=== PATIENT | female | born 1955 | race Native Hawaiian/Other Pacific Islander ===

== ENCOUNTER 2017-05-25 11:37 | Outpatient (CLI) | payer BC, OTHER ==
[~2017-05-25 11:37] MED LIST: ASPI81TA44 PO; CALC500T51 PO; GLIM4TAB3 PO; INSU100V7 SQ; LEVO500T90; LOSA1TAB39 PO; METF10002 PO; SIMV20TA6 PO; SITA100T PO
[2017-05-25 12:33] LABS: BASOPHILS % (AUTO) 0.6 % (0.0-2.0); EOSINOPHILS # (AUTO) 0.1 K/uL (0.0-0.7); EOSINOPHILS % (AUTO) 1.3 % (0.0-7.0); HEMATOCRIT 43.2 % (31.2-41.9); HEMOGLOBIN 14.9 g/dL (10.9-14.3); LYMPHOCYTES # (AUTO) 1.9 K/uL (20.0-40.0); LYMPHOCYTES % (AUTO) 25.4 % (20.5-51.5); MEAN CORPUSCULAR HEMOGLOBIN 31.8 uug (24.7-32.8); MEAN CORPUSCULAR HGB CONC 35 g/dL (32.3-35.6); MEAN CORPUSCULAR VOLUME 92.2 fL (75.5-95.3); MONOCYTES # (AUTO) 0.3 K/uL (2.0-10.0); MONOCYTES % (AUTO) 4.5 % (0.0-11.0); NEUTROPHILS % (AUTO) 68.2 % (38.5-71.5); PLATELET COUNT (AUTO) 135 K/uL (179-408); RED BLOOD CELL COUNT(AUTO) 4.68 MIL/uL (3.63-4.92); WHITE BLOOD COUNT (AUTO) 7.3 K/uL (3.8-11.8)
[2017-05-25 12:34] LABS: *BILIRUBIN,URIN NEGATIVE (NEGATIVE); *BLOOD, URINE NEGATIVE (NEGATIVE); *CLARITY,URINE CLEAR (CLEAR); *COLOR,URINE LIGHT YELLOW (YELLOW); *KETONES,URINE NEGATIVE (NEGATIVE); *PROTEIN,URINE NEGATIVE (NEGATIVE); *UROBILINOGEN,URINE 0.2 E.U./dl (NORMAL); LEUKOCYTE ESTERASE ,URINE NEGATIVE (NEGATIVE); NITRITE, URINE NEGATIVE (NEGATIVE); UGLUCOSE NEGATIVE (NEGATIVE)
[2017-05-25 12:56] LABS: RBC,URINE NONE SEEN /HPF (0-3)
[2017-05-25 12:57] LABS: BACTERIA,URINE NONE SEEN /HPF (NONE SEEN); SQUAMOUS EPITHELIAL CELL,UR FEW /HPF (NONE SEEN); WBC,URINE 0-3 /HPF (0-3)
[2017-05-25 12:59] LABS: BILIRUBIN,TOTAL 0.4 mg/dL (0.2-1.0); CREATININE 1.1 mg/dL (0.6-1.3); POTASSIUM 3.5 mmol/L (3.5-5.1); TOTAL PROTEIN, SERUM 7.2 g/dL (6.4-8.2); URIC ACID 5.8 mg/dL (2.6-6.0)
[2017-05-25 13:30] LABS: THYROID STIMULATING HORMONE 2.222 mIU/mL (0.358-3.740)
== END 2017-05-25 23:59 | disposition home or self-care (01) ==
LOC: LAB 11:37
PROVIDERS: ATTEND Legal Medicine
DX: Z00.01 Encounter for general adult medical examination with abnormal findings (principal); E11.9 Type 2 diabetes mellitus without complications; I10 Essential (primary) hypertension
CPT/HCPCS: 82043; 82306; 82570; 84443; 84550; 85025

== ENCOUNTER 2018-06-22 00:16 | Emergency (ER) | payer BC, OTHER ==
[~2018-06-22] VITALS: Ht 157.5 cm; Wt 72.6 kg
[~2018-06-22 00:16] MED LIST changes: +METF-442 PO; -METF10002 PO
--- NOTE | 2018-06-22 00:33 | NUR ---
PT A/OX4, C/O RINGING IN BILATERAL EARS STARTING YESTERDAY (06/20). PT STATES RINGING IN L EAR IS WORSE THAN IN THE R EAR. DENIES HEAD INJURY. PT DENIES PAIN, C/P, SOB, N/V/D, DIZZINESS, HEADACHE.
--- NOTE | 2018-06-22 00:40 | NUR ---
LATANYA FAUSTIN AT BEDSIDE FOR MSE.
--- NOTE | 2018-06-22 00:53 | NUR ---
Patient discharged to home in stable conditon. Written and verbal after care instructions given. Patient verbalizes understanding of instructions. ALL BELONGINGS W/ PT. PT SELF-AMBULATED W/O DIFFICULTY.
[2018-06-22 00:54] VITALS: BP 145/70
== END 2018-06-22 00:55 | disposition home or self-care (01) ==
LOC: ER 00:19
DX: H93.13 Tinnitus, bilateral (principal); E78.00 Pure hypercholesterolemia, unspecified; E11.9 Type 2 diabetes mellitus without complications; E78.5 Hyperlipidemia, unspecified; I10 Essential (primary) hypertension; Z79.82 Long term (current) use of aspirin; Z79.4 Long term (current) use of insulin; Z79.899 Other long term (current) drug therapy
CPT/HCPCS: A4663

== ENCOUNTER 2018-10-25 07:43 | Outpatient (CLI) | payer BC, OTHER ==
[2018-10-25 08:20] LABS: CREATININE 1.3 mg/dL (0.6-1.3)
== END 2018-10-25 23:59 | disposition home or self-care (01) ==
LOC: LAB 07:43
PROVIDERS: ATTEND Otolaryngology
DX: H90.42 Sensorineural hearing loss, unilateral, left ear, with unrestricted hearing on the contralateral side (principal)
CPT/HCPCS: 36415; 84520

== ENCOUNTER 2019-04-09 11:57 | Outpatient (CLI) | payer BC, OTHER ==
[2019-04-09 13:18] LABS: BASOPHILS % (AUTO) 0.8 % (0.0-2.0); EOSINOPHILS # (AUTO) 0.1 K/uL (0.0-0.7); EOSINOPHILS % (AUTO) 2.2 % (0.0-7.0); HEMATOCRIT 43.5 % (31.2-41.9); HEMOGLOBIN 14.7 g/dL (10.9-14.3); LYMPHOCYTES # (AUTO) 1.9 K/uL (20.0-40.0); MEAN CORPUSCULAR HEMOGLOBIN 31.8 uug (24.7-32.8); MEAN CORPUSCULAR HGB CONC 34 g/dL (32.3-35.6); MEAN CORPUSCULAR VOLUME 94.4 fL (75.5-95.3); MONOCYTES # (AUTO) 0.3 K/uL (2.0-10.0); MONOCYTES % (AUTO) 5.5 % (0.0-11.0); NEUTROPHILS # (AUTO) 3.7 K/uL (1.8-8.9); NEUTROPHILS % (AUTO) 60.5 % (38.5-71.5); PLATELET COUNT (AUTO) 141 K/uL (179-408); RED BLOOD CELL COUNT(AUTO) 4.61 MIL/uL (3.63-4.92); WHITE BLOOD COUNT (AUTO) 6.1 K/uL (3.8-11.8)
[2019-04-09 13:52] LABS: *BILIRUBIN,URIN NEGATIVE (NEGATIVE); *BLOOD, URINE NEGATIVE (NEGATIVE); *CLARITY,URINE CLEAR (CLEAR); *COLOR,URINE YELLOW (YELLOW); *KETONES,URINE NEGATIVE (NEGATIVE); *UROBILINOGEN,URINE 0.2 E.U./dl (NORMAL); LEUKOCYTE ESTERASE ,URINE 1+ (NEGATIVE); NITRITE, URINE NEGATIVE (NEGATIVE); PH,URINE 7.5 (5.0-8.0); UGLUCOSE NEGATIVE (NEGATIVE)
[2019-04-09 13:54] LABS: BILIRUBIN,TOTAL 0.3 mg/dL (0.2-1.0); CREATININE 1.1 mg/dL (0.6-1.3); POTASSIUM 3.9 mmol/L (3.5-5.1); TOTAL PROTEIN, SERUM 7.5 g/dL (6.4-8.2); URIC ACID 5.7 mg/dL (2.6-6.0)
[2019-04-09 13:57] LABS: THYROID STIMULATING HORMONE 2.857 mIU/mL (0.358-3.740)
[2019-04-09 14:09] LABS: RBC,URINE 0-3 /HPF (0-3)
[2019-04-09 14:10] LABS: BACTERIA,URINE NONE SEEN /HPF (NONE SEEN); SQUAMOUS EPITHELIAL CELL,UR MODERATE /HPF (NONE SEEN)
== END 2019-04-09 23:59 | disposition home or self-care (01) ==
LOC: LAB 11:57
PROVIDERS: ATTEND Legal Medicine
DX: Z00.00 Encounter for general adult medical examination without abnormal findings (principal); I10 Essential (primary) hypertension; E11.9 Type 2 diabetes mellitus without complications; E78.00 Pure hypercholesterolemia, unspecified; E55.9 Vitamin D deficiency, unspecified; D64.9 Anemia, unspecified
CPT/HCPCS: 36415; 82306; 83550; 84443; 84550; 85025; 87086

== ENCOUNTER 2019-09-14 07:53 | Emergency (ER) | payer BC, OTHER ==
[~2019-09-14] VITALS: Ht 160 cm; Wt 68.0 kg
--- NOTE | 2019-09-14 08:41 | NUR ---
Patient discharged to home in stable condition & steady gait. Written and verbal after care instructions given to patient. Patient verbalizes understanding & compliance of instructions.
== END 2019-09-14 08:42 | disposition home or self-care (01) ==
LOC: ER 07:53
DX: S39.012A Strain of muscle, fascia and tendon of lower back, initial encounter (principal); M16.11 Unilateral primary osteoarthritis, right hip; E78.5 Hyperlipidemia, unspecified; E11.9 Type 2 diabetes mellitus without complications; Z79.82 Long term (current) use of aspirin; Z79.2 Long term (current) use of antibiotics; Z79.899 Other long term (current) drug therapy; X58.XXXA Exposure to other specified factors, initial encounter; Y93.89 Activity, other specified; Y92.89 Other specified places as the place of occurrence of the external cause; Y99.8 Other external cause status
CPT/HCPCS: 72110; 72170; A4663

== ENCOUNTER 2019-10-25 08:02 | Emergency (ER) | payer BC, OTHER ==
[~2019-10-25] VITALS: Ht 157.5 cm; Wt 68.0 kg
== END 2019-10-25 08:28 | disposition home or self-care (01) ==
LOC: ER 08:04
DX: H00.014 Hordeolum externum left upper eyelid (principal); E11.9 Type 2 diabetes mellitus without complications; Z79.84 Long term (current) use of oral hypoglycemic drugs; Z79.82 Long term (current) use of aspirin
CPT/HCPCS: A4663

== ENCOUNTER 2019-11-21 07:38 | Emergency (ER) | payer BC, OTHER ==
[~2019-11-21] VITALS: Ht 157.5 cm; Wt 68.0 kg
[~2019-11-21 07:38] MED LIST changes: -GLIM4TAB3 PO; +GLIM4TAB37 PO; +SIMV-46 PO; -SIMV20TA6 PO
--- NOTE | 2019-11-21 07:59 | NUR ---
PATIENT WAS MSE BY DR LEMUS IN ROOM 05A. PATIENT A & O X4
--- NOTE | 2019-11-21 08:19 | NUR ---
Patient discharged to home in stable condition. Written and verbal after care instructions given. Patient verbalizes understanding of instructions. PT WALKS IN STEADY GAIT.Stressed follow up or return to ER for worsening s/s.
== END 2019-11-21 08:21 | disposition home or self-care (01) ==
LOC: ER 07:38
DX: M17.11 Unilateral primary osteoarthritis, right knee (principal); E78.5 Hyperlipidemia, unspecified; E11.9 Type 2 diabetes mellitus without complications; I10 Essential (primary) hypertension; Z79.4 Long term (current) use of insulin; Z79.82 Long term (current) use of aspirin; Z79.899 Other long term (current) drug therapy; Z83.3 Family history of diabetes mellitus; Z80.9 Family history of malignant neoplasm, unspecified
CPT/HCPCS: A4663

== ENCOUNTER 2020-05-31 10:04 | Emergency (ER) | payer BC, OTHER ==
[~2020-05-31] VITALS: Ht 157.5 cm; Wt 68.0 kg
[~2020-05-31 10:04] MED LIST changes: -CALC500T51 PO; +CALC500T52 PO
--- NOTE | 2020-05-31 10:24 | NUR ---
Patient discharged to home in stable condition. Written and verbal after care instructions given. Patient verbalizes understanding of instructions. Stressed follow up or return to ER for worsening s/s.no active nose bleed. pt walks in steady gait.
== END 2020-05-31 10:33 | disposition home or self-care (01) ==
LOC: ER 10:04
DX: R04.0 Epistaxis (principal); I10 Essential (primary) hypertension; E78.5 Hyperlipidemia, unspecified; E11.9 Type 2 diabetes mellitus without complications; Z98.49 Cataract extraction status, unspecified eye; Z80.9 Family history of malignant neoplasm, unspecified; Z83.3 Family history of diabetes mellitus; Z79.82 Long term (current) use of aspirin; Z79.4 Long term (current) use of insulin
CPT/HCPCS: A4663

== ENCOUNTER 2020-10-15 10:54 | Outpatient (CLI) | payer BC, OTHER ==
[2020-10-15 11:34] LABS: *BILIRUBIN,URIN NEGATIVE (NEGATIVE); *BLOOD, URINE NEGATIVE (NEGATIVE); *CLARITY,URINE CLEAR (CLEAR); *COLOR,URINE YELLOW (YELLOW); *KETONES,URINE NEGATIVE (NEGATIVE); *UROBILINOGEN,URINE 0.2 E.U./dl (NORMAL); LEUKOCYTE ESTERASE ,URINE NEGATIVE (NEGATIVE); NITRITE, URINE NEGATIVE (NEGATIVE); PH,URINE 7.5 (5.0-8.0); UGLUCOSE NEGATIVE (NEGATIVE)
[2020-10-15 11:51] LABS: BASOPHILS # (AUTO) 0.1 K/uL (0.0-8.0); BASOPHILS % (AUTO) 1.1 % (0.0-2.0); EOSINOPHILS # (AUTO) 0.1 K/uL (0.0-0.7); EOSINOPHILS % (AUTO) 1.6 % (0.0-7.0); HEMATOCRIT 42.7 % (31.2-41.9); HEMOGLOBIN 14.4 g/dL (10.9-14.3); LYMPHOCYTES # (AUTO) 1.6 K/uL (20.0-40.0); LYMPHOCYTES % (AUTO) 34.2 % (20.5-51.5); MEAN CORPUSCULAR HEMOGLOBIN 31.2 uug (24.7-32.8); MEAN CORPUSCULAR HGB CONC 34 g/dL (32.3-35.6); MEAN CORPUSCULAR VOLUME 92.7 fL (75.5-95.3); MONOCYTES # (AUTO) 0.3 K/uL (2.0-10.0); MONOCYTES % (AUTO) 6.5 % (0.0-11.0); NEUTROPHILS # (AUTO) 2.6 K/uL (1.8-8.9); NEUTROPHILS % (AUTO) 56.6 % (38.5-71.5); PLATELET COUNT (AUTO) 129 K/uL (179-408); WHITE BLOOD COUNT (AUTO) 4.6 K/uL (3.8-11.8)
[2020-10-15 12:36] LABS: THYROID STIMULATING HORMONE 3.119 mIU/mL (0.358-3.740)
[2020-10-15 13:01] LABS: BILIRUBIN,TOTAL 0.4 mg/dL (0.2-1.0); CREATININE 1.3 mg/dL (0.6-1.3); POTASSIUM 3.8 mmol/L (3.5-5.1); URIC ACID 6.4 mg/dL (2.6-6.0)
[2020-10-15 15:20] LABS: BACTERIA,URINE NONE SEEN /HPF (NONE SEEN); SQUAMOUS EPITHELIAL CELL,UR FEW /HPF (NONE SEEN); WBC,URINE 0-3 /HPF (0-3)
== END 2020-10-15 23:59 | disposition home or self-care (01) ==
LOC: LAB 10:54
PROVIDERS: ATTEND Legal Medicine
DX: I12.9 Hypertensive chronic kidney disease with stage 1 through stage 4 chronic kidney disease, or unspecified chronic kidney disease (principal); E11.22 Type 2 diabetes mellitus with diabetic chronic kidney disease; N18.9 Chronic kidney disease, unspecified; E03.9 Hypothyroidism, unspecified; D64.9 Anemia, unspecified; E78.00 Pure hypercholesterolemia, unspecified; E55.9 Vitamin D deficiency, unspecified; Z00.00 Encounter for general adult medical examination without abnormal findings
CPT/HCPCS: 82746; 83550; 84443; 84550; 85025; 87086